=== PATIENT | female | born 1995 | race Caucasian/White ===

== ENCOUNTER → 2023-10-24 08:30 | Outpatient (BNVA) | payer OTHER, SELFPAY | PROVIDERS: Family Provider Family Medicine; Visit Provider Podiatrist Foot & Ankle Surgery | DX: B07.0 Plantar wart; S90.851A Superficial foreign body, right foot, initial encounter; W25.XXXA Contact with sharp glass, initial encounter | CPT/HCPCS: 17110; 73630; 99203 ==

== ENCOUNTER → 2023-10-30 08:44 | Outpatient (BNVA) | payer OTHER, SELFPAY | PROVIDERS: Family Provider Family Medicine; Visit Provider Podiatrist Foot & Ankle Surgery | DX: B07.0 Plantar wart (principal); S90.851A Superficial foreign body, right foot, initial encounter; X58.XXXA Exposure to other specified factors, initial encounter | CPT/HCPCS: 99213 ==

== ENCOUNTER → 2023-11-20 08:30 | Outpatient (BNVA) | payer OTHER, SELFPAY | PROVIDERS: Family Provider Family Medicine; Visit Provider Podiatrist Foot & Ankle Surgery | DX: B07.0 Plantar wart (principal); S90.851A Superficial foreign body, right foot, initial encounter; X58.XXXA Exposure to other specified factors, initial encounter | CPT/HCPCS: 17110; 99213 ==

== ENCOUNTER → 2023-12-18 08:20 | Outpatient (BNVA) | payer OTHER, SELFPAY | PROVIDERS: Family Provider Family Medicine; Visit Provider Podiatrist Foot & Ankle Surgery | DX: B07.0 Plantar wart (principal) | CPT/HCPCS: 17110 ==

== ENCOUNTER → 2024-05-26 09:48 | Outpatient (BNVA) | payer OTHER, SELFPAY | PROVIDERS: Family Provider Family Medicine; PCP Family Medicine; Visit Provider Specialist | DX: M67.431 Ganglion, right wrist (principal) | CPT/HCPCS: 73110 ==

== ENCOUNTER 2024-10-05 08:41 | Outpatient (RCR) | payer OTHER, SELFPAY | END 2024-10-15 23:59 | disposition home or self-care (01) | LOC: SPT 08:41 | PROVIDERS: Visit Provider Family Medicine | DX: M79.10 Myalgia, unspecified site (principal) | CPT/HCPCS: 97110; 97161 ==

== ENCOUNTER 2024-10-16 06:00 | Outpatient (RCR) | payer OTHER, SELFPAY | END 2024-11-15 23:59 | disposition home or self-care (01) | LOC: SPT 06:00 | PROVIDERS: Visit Provider Family Medicine | DX: M79.10 Myalgia, unspecified site (principal) | CPT/HCPCS: 97110 ==

== ENCOUNTER 2024-11-24 10:13 | Outpatient (RCR) | payer OTHER, SELFPAY | END 2024-12-15 23:59 | disposition home or self-care (01) | LOC: SPT 10:13 | PROVIDERS: Visit Provider Family Medicine | DX: M79.10 Myalgia, unspecified site (principal) | CPT/HCPCS: 97110 ==

== ENCOUNTER 2024-12-16 05:00 | Outpatient (RCR) | payer OTHER, SELFPAY | END 2025-01-11 09:56 | disposition home or self-care (01) | LOC: SPT 05:00 | PROVIDERS: Visit Provider Family Medicine | DX: M79.10 Myalgia, unspecified site (principal) | CPT/HCPCS: 97110 ==